=== PATIENT | male | born 1990 | race Caucasian/White ===

== ENCOUNTER 2018-05-08 19:07 | Emergency (ER) | payer OTHER ==
[~2018-05-08] VITALS: Ht 188 cm; Wt 96.6 kg
[2018-05-08 19:08] VITALS: BP 160/100
[2018-05-08] MEDS ORDERED: NOHOMEMEDICATIONS (19:09)
== END 2018-05-08 22:28 | disposition home or self-care (01) ==
LOC: ER 19:07
DX: F10.129 Alcohol abuse with intoxication, unspecified (principal)

== ENCOUNTER 2021-02-11 13:00 | Emergency (ER) | payer BC ==
[~2021-02-11] VITALS: Ht 188 cm; Wt 99.8 kg
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
[~2021-02-11 13:00] MED LIST: NOHOMEMEDICATIONS
[2021-02-11 13:36] LABS: ABSOLUTE NEUTROPHILS 2.4 thou/uL (1.4-8.2); BASOPHILS 0.7 % (0.0-2.0); EOSINOPHILS 2.6 % (0.0-3.0); HEMATOCRIT 46.6 % (42.0-52.0); LYMPHOCYTES 35.7 % (24.0-44.0); MCHC 34.3 g/dL (28.0-37.0); MCV 96.3 fL (80.0-100.0); MONOCYTES 6.3 % (1.0-8.0); PLATELET COUNT 189 thou/uL (150-400); POLYS 54.7 % (36.0-66.0); RBC 4.83 mil/uL (4.50-6.00); RDW 14.3 % (10.5-14.5); WBC 4.4 thou/uL (4.0-11.0)
[2021-02-11 13:49] LABS: ANION GAP 13 mmol/L (7-16); BUN 8 mg/dL (7-18); CHLORIDE 106 mmol/L (98-107); CO2 28 mmol/L (21-32); CREATININE 0.9 mg/dL (0.7-1.3); GLUCOSE 105 mg/dL (74-106); POTASSIUM 3.9 mmol/L (3.5-5.1); SODIUM 147 mmol/L (136-145)
[2021-02-11 14:07] LABS: ALBUMIN 3.8 g/dL (3.4-5.0); SALICYLATE < 2.8 mg/dL (2.8-20.0); SGOT 77 U/L (15-37); SGPT 75 U/L (16-63); TOTAL BILIRUBIN 0.2 mg/dL (0.2-1.0); TOTAL PROTEIN 7.5 g/dL (6.4-8.2)
--- NOTE | 2021-02-11 14:33 | EKG ---
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1990 Requested By: Efe Jones Order Number: [id number] MD: Zeus Tomlin Measurements Intervals [place] Rate: 102 P: 129 DE: 163 QRS: 166 QRSD: 105 T: 144 QT: 349 QTc: 455 Interpretive Statements Right and left arm electrode reversal, interpretation assumes no reversal Sinus tachycardia Right axis deviation Baseline wander in lead(s) V1,V2 No previous ECG available for comparison Electronically Signed On 02-11-2021 14:33:28 CDT by Zeus Tomlin [email or web address] <ELECTRONICALLY SIGNED> By: Zeus Tomlin MD, [facility] 02/11/21 1433 1318 1318 Zeus Tomlin MD, FACC /EPI
[2021-02-11 23:00] VITALS: BP 150/97
--- NOTE | 2021-02-12 07:16 | EKG ---
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
== END 2021-02-11 23:03 ==
LOC: ER 13:00
PROVIDERS: Physician Assistant
DX: R45.851 Suicidal ideations (principal); Y90.8 Blood alcohol level of 240 mg/100 ml or more; F10.129 Alcohol abuse with intoxication, unspecified; Z72.89 Other problems related to lifestyle; Z20.822 Contact with and (suspected) exposure to COVID-19

== ENCOUNTER 2021-03-23 22:52 | Emergency (ER) | payer BC ==
[~2021-03-23] VITALS: Ht 165.1 cm; Wt 68.0 kg
[2021-03-23] MEDS ORDERED: ZOLOFT 50 MG TA50 MG PO (23:22)
[2021-03-24 00:11] LABS: HEMOGLOBIN 14.1 gm/dL (14.0-18.0); MCH 32.3 pg (26.0-34.0); MCHC 33.6 g/dL (28.0-37.0); MCV 96.3 fL (80.0-100.0); RBC 4.36 mil/uL (4.50-6.00); RDW 13.7 % (10.5-14.5); WBC 5.5 thou/uL (4.0-11.0)
[2021-03-24 00:15] LABS: ANION GAP 12 mmol/L (7-16); BUN 10 mg/dL (7-18); CALCIUM 8.1 mg/dL (8.5-10.1); CHLORIDE 109 mmol/L (98-107); CO2 24 mmol/L (21-32); GLUCOSE 100 mg/dL (74-106); POTASSIUM 3.6 mmol/L (3.5-5.1); SODIUM 145 mmol/L (136-145)
[2021-03-24 00:22] LABS: ALBUMIN 3.4 g/dL (3.4-5.0); SALICYLATE < 2.8 mg/dL (2.8-20.0); SGOT 23 U/L (15-37); SGPT 31 U/L (16-63); TOTAL BILIRUBIN 0.1 mg/dL (0.2-1.0); TOTAL PROTEIN 6.6 g/dL (6.4-8.2)
[2021-03-24 10:22] LABS: AMP/METHAMP Negative (Negative); BARBITURATES Negative (Negative); BENZODIAZEPINES Negative (Negative); COCAINE Negative (Negative); METHADONE Negative (Negative); OPIATES Negative (Negative); PCP Negative (Negative)
[2021-03-24 23:38] VITALS: BP 142/9
--- NOTE | 2021-03-25 07:28 | EKG ---
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
== END 2021-03-23 23:59 ==
LOC: ER 22:52
PROVIDERS: Emergency Medicine
DX: R45.851 Suicidal ideations (principal); Z20.822 Contact with and (suspected) exposure to COVID-19; Y90.8 Blood alcohol level of 240 mg/100 ml or more; F10.129 Alcohol abuse with intoxication, unspecified; Z79.899 Other long term (current) drug therapy